=== PATIENT | male | born 1970 | race Caucasian/White ===

== ENCOUNTER 2016-07-16 22:20 | Emergency (ER) | payer BC ==
[~2016-07-16 22:20] MED LIST: NEXIUM 40MG40 MG PEG; NO HOME MEDICATIONS; ZOLOFT25 M1 PO
[2016-07-16] MEDS ORDERED: CEPHALEXIN500 M1 PO (23:36)
== END 2016-07-16 23:45 | disposition home or self-care (01) ==
LOC: ED 22:20
DX: S61.412A Laceration without foreign body of left hand, initial encounter (principal); S60.312A Abrasion of left thumb, initial encounter; W27.8XXA Contact with other nonpowered hand tool, initial encounter; Y92.79 Other farm location as the place of occurrence of the external cause
CPT/HCPCS: 90715; A4550

== ENCOUNTER 2016-07-22 17:41 | Emergency (ER) | payer BC ==
[~2016-07-22 17:41] MED LIST changes: +CEPHALEXIN500 M1 PO
[2016-07-22 17:57] VITALS: BP 141/69
== END 2016-07-22 17:58 | disposition home or self-care (01) ==
LOC: ED 17:41
DX: S61.412D Laceration without foreign body of left hand, subsequent encounter (principal)

== ENCOUNTER 2017-09-16 23:02 | Emergency (ER) | payer BC ==
[~2017-09-16] VITALS: Ht 182.9 cm; Wt 107.7 kg
[2017-09-16 23:35] LABS: BASO # 0.1 (0.02-0.10); EOS # 0.3 (0.04-0.40); EOS % 2.5 % (0.0-4.0); HEMATOCRIT 45.6 % (42.0-52.0); HEMOGLOBIN 15.5 g/dL (13.5-18.0); LYMPH# 3.6 (1.50-4.00); MEAN CELL VOLUME 86 fl (78-100); MEAN CORPUSCULAR HEMOGLOBIN 29 pg (27-31); MEAN CORPUSCULAR HGB CONC 34 g/dL (33-37); MEAN PLATELET VOLUME 9.3 fl (7.4-10.4); MONO # 1.2 (0.20-0.80); NEU # 5.6 (1.40-6.50); PLATELET COUNT 333 K/mm3 (130-400); RED BLOOD COUNT 5.32 M/mm3 (4.20-5.60); RED CELL DISTRIBUTION WIDTH 14.5 % (11.5-14.5); WHITE BLOOD COUNT 10.8 K/mm3 (4.8-10.8)
[2017-09-16 23:50] LABS: ALBUMIN 4.2 g/dL (3.5-5.0); CALCIUM 9.3 mg/dL (8.4-10.2); POTASSIUM 3.6 mmol/L (3.6-5.0); TOTAL BILIRUBIN 0.2 mg/dL (0.2-1.3); TOTAL PROTEIN 7.5 g/dL (6.3-8.2)
[2017-09-16 23:59] LABS: TROPONIN-I < 0.03 ng/mL (0.00-0.06)
[2017-09-17 03:23] LABS: CKMB ISOENZYME 0.8 ng/mL (0.6-3.5)
[2017-09-17 03:28] LABS: TROPONIN-I < 0.03 ng/mL (0.00-0.06)
[2017-09-17 04:20] VITALS: BP 139/87
== END 2017-09-17 04:15 | disposition home or self-care (01) ==
LOC: ED 23:02
PROVIDERS: Nurse Practitioner Family
DX: R07.9 Chest pain, unspecified (principal); R00.2 Palpitations; R06.02 Shortness of breath; R53.1 Weakness; R42 Dizziness and giddiness; Z85.528 Personal history of other malignant neoplasm of kidney; Z90.5 Acquired absence of kidney; Z90.81 Acquired absence of spleen; K21.9 Gastro-esophageal reflux disease without esophagitis; F32.9 Major depressive disorder, single episode, unspecified
CPT/HCPCS: J7030

== ENCOUNTER 2019-08-26 13:00 | Outpatient (RCR) | payer BC ==
[2019-08-12 22:30] VITALS: BP 114/73
[~2019-08-26 13:00] MED LIST changes: +ASPIRIN E.C. 8181 MG PO; +CLOPIDOGREL PO; +LIPITOR20 M2 PO; +PREDNISONE10 MG PO; +VALTREX1 GM PO
== END 2019-11-24 ==
LOC: SPEECH
DX: R47.01 Aphasia (principal); R42 Dizziness and giddiness

== ENCOUNTER 2021-11-14 10:54 | Outpatient (RCR) | payer BC | END 2021-11-27 | disposition home or self-care (01) | LOC: PT | DX: M25.551 Pain in right hip (principal) ==

== ENCOUNTER 2021-12-04 09:00 | Outpatient (RCR) | payer BC | END 2021-12-27 | disposition home or self-care (01) | LOC: PT | DX: M25.551 Pain in right hip (principal) ==